=== PATIENT | male | born 1995 ===

== ENCOUNTER 2024-02-03 16:54 | Emergency (ER) | payer BC ==
[~2024-02-03] VITALS: Ht 177.8 cm; Wt 95.5 kg
[2024-02-03 17:01] VITALS: BP 129/82; PULSE 76; RESP 18; TEMP 98.2; O2SAT 99
== END 2024-02-03 17:37 | disposition left against medical advice (07) ==
LOC: EMS 16:54
DX: R51.9 Headache, unspecified (principal); Z53.21 Procedure and treatment not carried out due to patient leaving prior to being seen by health care provider